=== PATIENT | male | born 1990 | race Two or more races ===

== ENCOUNTER 2020-09-09 18:59 | Emergency (ER) | payer SELFPAY ==
[~2020-09-09] VITALS: Ht 180.3 cm; Wt 100.0 kg
--- NOTE | 2020-09-09 19:21 | NUR ---
PT CC OF NAIL STUCK IN L ANKLE FROM A WORK INJURY WITH A PLANT TRENCHER. STATES PAIN IS 8/10, DENIES WANTING PAIN MEDS AT THIS TIME. LAST TENTAS >8 YEARS AGO. [employer]ER AT BEDSIDE.
[2020-09-09] MEDS ORDERED: DIPH,PERTUSS(ACELL),TET VAC/PF 0.5 ML IM-VACC ONE ×2 (19:30→20:00)
[2020-09-09] MEDS ORDERED: NEOSPORIN OINT. PKT 1 PACKET ONE (20:19)
[2020-09-09 21:01] VITALS: BP 145/90
== END 2020-09-09 21:19 | disposition home or self-care (01) ==
LOC: ED 19:15
DX: S91.042A Puncture wound with foreign body, left ankle, initial encounter (principal); X58.XXXA Exposure to other specified factors, initial encounter; Y93.89 Activity, other specified; Y92.009 Unspecified place in unspecified non-institutional (private) residence as the place of occurrence of the external cause; Y99.8 Other external cause status
CPT/HCPCS: 90471; 90715; 99284